=== PATIENT | female | born 2000 | race Caucasian/White ===

== ENCOUNTER 2021-05-08 19:43 | Emergency (ER) | payer OTHER, SELFPAY ==
[2021-05-08 19:55] VITALS: BP 122/85; PULSE 108; RESP 18; TEMP 36.8; O2SAT 99; BMI 21.2
--- NOTE | 2021-05-08 20:48 | HMH.EDUTC ---
[facility] [place] Disposition Clinical Impression: Exposure to COVID-19 virus, Viral syndrome Disposition: Home, Self-Care Condition on Discharge: Good Instructions: DI for COVID-19 (Suspected or Confirmed ), Preventing the Spread of Coronavirus Discharge Instructions Additional Instructions: Drink plenty of fluids. Take tylenol for pain or fever. Return if you begin to have difficulty breathing. Follow up with your regular doctor. GO TO THE ER FOR ANY WORSENING SYMPTOMS Quarantine until you know the results of your covid-19 test. If it is positive, the health department should call you and give you further instructions about your length of Quarantine and other things. Notify your school or workplace of your results and follow their instructions regarding return to work/school. Prescriptions: Ondansetron [Zofran 4mg ODT] 4 mg PO DAILYP PRN #12 tab PRN Reason: Nausea Transmission Status: Sent to [facility] Referrals: Provider,Referral, [Primary Care Provider] - Time of Disposition: 20:50 Medical Decision Making - Medical Records Medical records reviewed: No: I reviewed the patient's medical records. - Hang Inquiry Pt receiving controlled substance: No Vital Signs: 05/08/21 19:55 05/08/21 20:50 Temperature 98.3 F 98.3 F Temperature Source Oral Pulse Rate 108 H Pulse Rate [Left Brachial] 108 H Respiratory Rate 18 18 Blood Pressure 122/85 Blood Pressure [Left Arm] 122/85 Blood Pressure Mean [Left Arm] 97 Blood Pressure Source [Left Arm] Automatic Cuff Blood Pressure Position [Left Arm] Sitting 02 Sat by Pulse Oximetry 99 Oxygen Delivery Method Room Air Orders (Tests/Meds): ORDERS Category Date Time Status Covid-19 Nasal PCR ([facility]) Routine Lab 05/08/21 20:[address] [facility] [place] HPI - General Stated complaint: runny nose headache/covid test Time Seen by Provider: 05/08/21 20:48 Mode of Arrival: Ambulatory Source of Information: Patient Limitations: No Limitations Description of Symptoms (Recalled from Triage Doc. by RN): PATIENT C/O HEADACHE, CONGESTION, AND RUNNY NOSE. EXPOSED TO COVID 1 WEEK AGO HEENT Symptoms (Recalled from RN notes): Yes Resp Symptoms (Recalled from RN notes): No Skin Symptoms (Recalled from RN notes): No MS Symptoms (Recalled from RN notes): No Functional Status (Recalled from RN notes): WNL - History of Present Illness Provider Complaint: She has been exposed to covid-19 by her mother in law having it. - Related Data Previous Rx's Medication Instructions Recorded Ondansetron [Zofran 4mg ODT] 4 mg PO DAILYP PRN #12 tab 05/08/21 Allergies Allergy/AdvReac Type Severity Reaction Status Date / Time No Known Allergies Allergy Verified 05/08/21 20:10 - Worker's Comp Is this a Worker's Comp case?: No [facility] History - Hepatitis A Screen Drug use history?: No High risk sexual behaviors?: No History of sexually transmitted infection?: No Currently employed?: No Childcare worker?: No Do you have indoor plumbing?: Yes Do you have electricity?: Yes Attestation statement:: This patient has been screened for Hepatitis A risk factors. I have reviewed the patient's past medical history: Yes ROS Obtained: Yes All systems reviewed & no additional complaints - Constitutional Constitutional: Reports system reviewed and no additional complaints, except as docu - Eyes Eyes: Reports system reviewed and no additional complaints, except as docu - ENT Ears, Nose, Mouth, and Throat: Reports system reviewed and no additional complaints, except as docu - Cardiovascular Cardiovascular: Reports system reviewed and no additional complaints, except as docu - Respiratory Respiratory: Reports system reviewed and no additional complaints, except as docu - Gastrointestinal Gastrointestingal: Reports: system reviewed and no additional complaints, except as docu Physical Exam - General General appearance: alert, in no appa
[2021-05-08 20:50] VITALS: BP 122/85; PULSE 108; RESP 18; TEMP 36.8; O2SAT 99
== END 2021-05-08 20:53 | disposition home or self-care (01) ==
PROVIDERS: Emergency Provider Nurse Practitioner Family
DX: U07.1 COVID-19 (principal); B34.9 Viral infection, unspecified
CPT/HCPCS: 99202; C9803; G0463; U0003; U0005

== ENCOUNTER 2021-08-15 20:10 | Emergency (ER) | payer BC, SELFPAY ==
[2021-08-15 21:01] VITALS: BP 142/79; PULSE 115; RESP 18; TEMP 36.9; O2SAT 97; BMI 21.9
--- NOTE | 2021-08-15 21:27 | HMH.EDUTC ---
[facility] [place] Disposition Clinical Impression: Allergic reaction Qualifiers: Encounter type: initial encounter Qualified Code(s): T78.40XA - Allergy, unspecified, initial encounter Disposition: Home, Self-Care Condition on Discharge: Good Instructions: DI for General Allergic Reactions Additional Instructions: Avoid contact with the offending substance. Don't start the oral steroids until tomorrow. Don't put the topical steroids (triamcinolone) on your face or your groin. Follow up with your regular doctor. GO TO THE ER FOR ANY WORSENING SYMPTOMS OR CONCERNS The vistiril will make you drowsy, so don't drive or operate heavy machinery after taking it. Prescriptions: Loratadine [Claritin] 10 mg PO DAILY 14 Days #14 cap [facility] methylPREDNISolone [Medrol] 4 mg PO DIRECTED 6 Days #21 packet Transmission Status: [facility] Triamcinolone Acetonide 1 applicatio TP TIDP PRN 7 Days #1 gm PRN Reason: Itching Transmission Status: [facility] hydrOXYzine pamoate [Vistaril 25mg capsule] 25 mg PO Q6H PRN #30 cap PRN Reason: Itching [facility] Referrals: Koby Dorado [Primary Care Provider] - Time of Disposition: 21:34 Medical Decision Making - Medical Records Medical records reviewed: No: I reviewed the patient's medical records. - Hang Inquiry Pt receiving controlled substance: No Vital Signs: 08/15/21 21:01 08/15/21 21:31 Temperature 98.4 F 98.4 F Temperature Source Oral Pulse Rate 115 H Pulse Rate [Left] 115 H Respiratory Rate 18 18 Blood Pressure 142/79 H Blood Pressure [Right Arm] 142/79 H Blood Pressure Mean [Right Arm] 100 02 Sat by Pulse Oximetry 97 Orders (Tests/Meds): ED MEDICATIONS Discontinued Medications Generic Name Dose Route Start Last Admin Trade Name Freq PRN Reason Stop Dose Admin Methylprednisolone Sodium Succinate 125 mg 08/15/21 21:26 08/15/21 21:30 Methylprednisolone Sod Succ 125mg Vial IM 08/15/21 21:27 125 mg ONCE ONE Administration [facility] [place] HPI - General Stated complaint: possbile reaction Time Seen by Provider: 08/15/21 21:27 Mode of Arrival: Ambulatory Source of Information: Patient Limitations: No Limitations Description of Symptoms (Recalled from Triage Doc. by RN): pt presents with hives covering all extremities, hips, neck and face. pt states she used self juan diego on 08/13. about an hour later pt started having a reaction. pt states she was not home so she did not attempt to remove any of the self juan diego. pt has been treating with cortisone cream and benedryl. HEENT Symptoms (Recalled from RN notes): No Resp Symptoms (Recalled from RN notes): No Skin Symptoms (Recalled from RN notes): Yes MS Symptoms (Recalled from RN notes): No Functional Status (Recalled from RN notes): wnl - History of Present Illness Provider Complaint: She has had a rash and hives on both her legs and abdomen for the past 4 days. It started after she applied a self tanning lotion. She denies any shortness of breath or chest tightness. She denies any mouth or lip swelling. - Related Data Previous Rx's Medication Instructions Recorded Ondansetron [Zofran 4mg ODT] 4 mg PO DAILYP PRN #12 tab 05/08/21 Loratadine [Claritin] 10 mg PO DAILY 14 Days #14 cap 08/15/21 Triamcinolone Acetonide 1 applicatio TP TIDP PRN 7 Days #1 08/15/21 gm hydrOXYzine pamoate [Vistaril 25mg 25 mg PO Q6H PRN #30 cap 08/15/21 capsule] methylPREDNISolone [Medrol] 4 mg PO DIRECTED 6 Days #21 08/15/21 packet Allergies Allergy/AdvReac Type Severity Reaction Status Date / Time No Known Allergies Allergy Verified 05/08/21 20:10 - Worker's Comp Is this a Worker's Comp case?: No [facility] History - Hepatitis A Screen Drug use history?: No High risk sexual behaviors?: No History of sexually transmitted infection?: No Currently em
[2021-08-15 21:31] VITALS: BP 142/79; PULSE 115; RESP 18; TEMP 36.9
== END 2021-08-15 21:40 | disposition home or self-care (01) ==
PROVIDERS: Emergency Provider Nurse Practitioner Family; PCP Family Medicine
DX: L23.2 Allergic contact dermatitis due to cosmetics (principal)
CPT/HCPCS: 96372; 99202; G0463